=== PATIENT | female | born 1955 ===

== ENCOUNTER 2024-08-11 16:45 | Inpatient (IN) ==
[2024-08-11] MEDS ORDERED: IOPAMIDOL 100 ML BOTTLE IV ONE (16:46)
[2024-08-11 17:18] LABS: Basophils # (Auto) 0.02 K/mcL (0.00-0.30); Basophils % (Auto) 0.4 % (0.0-2.0); Eosinophils # (Auto) 0.01 K/mcL (0.00-0.70); Eosinophils % (Auto) 0.2 % (0.0-7.0); Hematocrit 41.7 % (34.1-44.9); Hemoglobin 11.8 g/dL (11.2-15.7); Lymphocytes # (Auto) 0.74 K/mcL (1.50-4.80); Mean Cell Volume 108.3 fL (80.0-100.0); Mean Corpuscular HGB Conc 28.3 g/dL (31.0-36.0); Mean Platelet Volume 10.6 fL (8.8-12.5); Monocytes # (Auto) 0.47 K/mcL (0.10-0.90); Monocytes % (Auto) 8.3 % (1.0-12.0); Neutrophils % (Auto) 77.9 % (38.0-78.0); Platelet Count 159 K/mcL (140-440); RBC 3.85 M/mcL (3.59-5.38); Red Cell Distribution Width 15.1 % (11.5-14.5); WBC 5.7 K/mcL (4.5-11.0)
[2024-08-11 17:37] LABS: Appearance,Urine Cloudy (Clear); Bacteria,Urine Rare /hpf (0); Bilirubin,Urine Moderate mg/dL (Negative); Color,Urine Yellow; Glucose,Urine (UA) Negative (Negative); Ketones,Urine Negative (Negative); Leukocyte Esterase,Urine Small /uL (Negative); Nitrate,Urine Negative (Negative); PH,Urine 5.5 (5.0-9.0); Protein,Urine 100 mg/dL (Negative); Specific Gravity,Urine >= 1.030 (1.000-1.035); Urine Blood Large ery/mcL (Negative); Urine RBC 50 /hpf (0-3); Urine Squamous Epithelial Cell 2 /hpf (0-4); Urine WBC > 182 /hpf (0-4); Urobilinogen,Urine Normal
[2024-08-11] MEDS: DILTIAZEM 25 MG/5 ML VIAL IV ONE ×2 (17:46→21:20)
[2024-08-11] MEDS: cefTRIAXone 1 GM VIAL IV ONE (17:46)
[2024-08-11 17:57] LABS: ALT/SGPT < 5 U/L (<40); AST/SGOT 22 U/L (<32); Albumin 3.6 gm/dL (3.2-5.2); Alkaline Phosphatase 90 U/L (39-117); Bilirubin,Total 0.4 mg/dL (0.1-1.0); Blood Urea Nitrogen 26 mg/dL (8-23); Calcium 9.7 mg/dL (8.6-10.4); Carbon Dioxide 41 mmol/L (22-30); Chloride 92 mmol/L (96-108); Globulin 3.7 gm/dL (2.2-3.7); Glomerular Filtration Rate 100; Glucose 102 mg/dL (70-105); Potassium 5.4 mmol/L (3.3-5.1); Sodium 141 mmol/L (133-145)
[2024-08-11 18:20] LABS: Free T4 (Free Thyroxine) 0.72 ng/dL (0.93-1.70)
[2024-08-11] MEDS: IPRATROPIUM/ALBUTEROL 3 ML AMPUL.NEB NEB ONE (19:13)
[2024-08-11] MEDS: OSELTAMIVIR PHOSPHATE 75 MG CAPSULE PO ONE (21:56)
[2024-08-11] MEDS ORDERED: ACETAMINOPHEN 160 MG/5 ML ORAL.SOL PO PRN (23:22)
[2024-08-11] MEDS ORDERED: DILTIAZEM 125 MG in DEXTROSE 5% IN WATER 100 ML IV PRN (23:22)
[2024-08-11] MEDS: IPRATROPIUM/ALBUTEROL 3 ML AMPUL.NEB NEB SCH (23:26)
[2024-08-12] MEDS: acetaZOLAMIDE SOD 500 MG VIAL IV ONE ×2 (00:31→08:55)
[2024-08-12] MEDS: cefTRIAXone 2 GM in DEXTROSE 5% IN WATER 50 ML IV SCH (00:34)
[2024-08-12] MEDS: ENOXAPARIN 60 MG/0.6 ML SYRINGE ONE (00:45)
[2024-08-12] MEDS: ENOXAPARIN 40 MG/0.4 ML SYRINGE SQ SCH (00:46)
[2024-08-12] MEDS: METOPROLOL TARTRATE 25 MG TABLET PO SCH (00:49)
[2024-08-12] MEDS: METOPROLOL TARTRATE 25 MG TABLET ONE (00:50)
[2024-08-12] MEDS: IPRATROPIUM/ALBUTEROL 3 ML AMPUL.NEB NEB ONE ×3 (00:55→06:35)
[2024-08-12] MEDS: AZITHROMYCIN 500 MG in DEXTROSE 5% IN WATER 250 ML IV SCH (01:04)
[2024-08-12] MEDS: BUDESONIDE 0.5 MG/2 ML AMPUL.NEB ONE (06:35)
[2024-08-12 07:05] LABS: ALT/SGPT < 5 U/L (<40); AST/SGOT 12 U/L (<32); Albumin 3.2 gm/dL (3.2-5.2); Albumin/Globulin Ratio 1.1 (1.0-2.3); Alkaline Phosphatase 78 U/L (39-117); Bilirubin,Direct < 0.2 mg/dL (0-0.3); Bilirubin,Total 0.3 mg/dL (0.1-1.0); Blood Urea Nitrogen 26 mg/dL (8-23); Calcium 9.3 mg/dL (8.6-10.4); Carbon Dioxide 42 mmol/L (22-30); Chloride 93 mmol/L (96-108); Glomerular Filtration Rate 94; Glucose 83 mg/dL (70-105); Lactate Dehydrogenase 130 U/L (135-225); Phosphorous 2.1 mg/dL (2.5-4.5); Potassium 4.5 mmol/L (3.3-5.1); Sodium 142 mmol/L (133-145); Triglycerides 101 mg/dL (<150); Uric Acid 4.5 mg/dL (2.5-8.0)
[2024-08-12] MEDS: PANTOPRAZOLE 40 MG TABLET PO SCH (08:00)
[2024-08-12] MEDS: IPRATROPIUM/ALBUTEROL 3 ML AMPUL.NEB NEB PRN (08:25)
[2024-08-12] MEDS: FUROSEMIDE 40 MG/4 ML VIAL IV ONE (08:55)
[2024-08-12] MEDS: CYANOCOBALAMIN 1,000 MCG/ML VIAL IM ONE (08:56)
[2024-08-12] MEDS ORDERED: OSELTAMIVIR PHOSPHATE 75 MG CAPSULE PO SCH (09:00)
[2024-08-12] MEDS: BUDESONIDE 0.5 MG/2 ML AMPUL.NEB NEB SCH (09:00)
[2024-08-12] MEDS: methylPREDNISolone SOD SUCC 125 MG/2 ML VIAL IV ONE (09:19)
[2024-08-12] MEDS: ENOXAPARIN 60 MG/0.6 ML SYRINGE SQ ONE (12:41)
[2024-08-12] MEDS: methylPREDNISolone SOD SUCC 125 MG/2 ML VIAL IV SCH ×2 (15:00→21:34)
[2024-08-12] MEDS: NEUTRA PHOS 1 PACKET PO SCH (15:00)
[2024-08-12 15:32] LABS: C-Reactive Protein 2.97 mg/dL (0.03-0.80)
[2024-08-12] MEDS ORDERED: AZITHROMYCIN 500 MG in 0.9 % SODIUM CHLORIDE 250 ML IV SCH (16:00)
[2024-08-12] MEDS: METOPROLOL TARTRATE 5 MG/5 ML VIAL IV PRN (16:07)
[2024-08-12] MEDS: AZITHROMYCIN 500 MG in 0.9 % SODIUM CHLORIDE 250 ML IV SCH (16:07)
[2024-08-12] MEDS: APIXABAN 5 MG TABLET PO SCH (20:24)
[2024-08-12] MEDS ORDERED: APIXABAN 5 MG TABLET PO SCH ×2 (21:00)
[2024-08-13 06:11] LABS: Basophils # (Auto) 0.02 K/mcL (0.00-0.30); Basophils % (Auto) 0.5 % (0.0-2.0); Eosinophils # (Auto) 0 K/mcL (0.00-0.70); Eosinophils % (Auto) 0 % (0.0-7.0); Hematocrit 33.3 % (34.1-44.9); Hemoglobin 9.9 g/dL (11.2-15.7); Lymphocytes % (Auto) 8.2 % (15.5-49.0); Mean Cell Volume 102.5 fL (80.0-100.0); Mean Corpuscular HGB Conc 29.7 g/dL (31.0-36.0); Mean Platelet Volume 10.3 fL (8.8-12.5); Monocytes # (Auto) 0.16 K/mcL (0.10-0.90); Monocytes % (Auto) 4.4 % (1.0-12.0); Neutrophils % (Auto) 86.6 % (38.0-78.0); Platelet Count 142 K/mcL (140-440); RBC 3.25 M/mcL (3.59-5.38); Red Cell Distribution Width 15.6 % (11.5-14.5); WBC 3.7 K/mcL (4.5-11.0)
[2024-08-13 06:32] LABS: C-Reactive Protein 2.28 mg/dL (0.03-0.80)
[2024-08-13 06:33] LABS: ALT/SGPT < 5 U/L (<40); AST/SGOT 14 U/L (<32); Albumin 3.1 gm/dL (3.2-5.2); Albumin/Globulin Ratio 1.1 (1.0-2.3); Alkaline Phosphatase 69 U/L (39-117); Bilirubin,Direct < 0.2 mg/dL (0-0.3); Bilirubin,Total 0.3 mg/dL (0.1-1.0); Blood Urea Nitrogen 24 mg/dL (8-23); Calcium 8.9 mg/dL (8.6-10.4); Carbon Dioxide 40 mmol/L (22-30); Chloride 93 mmol/L (96-108); Globulin 2.8 gm/dL (2.2-3.7); Glomerular Filtration Rate 89; Glucose 133 mg/dL (70-105); Lactate Dehydrogenase 146 U/L (135-225); Phosphorous 3.3 mg/dL (2.5-4.5); Potassium 3.7 mmol/L (3.3-5.1); Sodium 140 mmol/L (133-145); Triglycerides 99 mg/dL (<150); Uric Acid 4.8 mg/dL (2.5-8.0)
[2024-08-13] MEDS ORDERED: IOPAMIDOL 100 ML BOTTLE IV ONE (08:57)
[2024-08-13] MEDS: CYANOCOBALAMIN (VITAMIN B-12) 500 MCG TABLET PO SCH (10:23)
[2024-08-13] MEDS ORDERED: ALTEPLASE 2 MG VIAL IV PRN (12:19)
[2024-08-13] MEDS: METOPROLOL TARTRATE 25 MG TABLET PO ONE (12:45)
[2024-08-13] MEDS ORDERED: DILTIAZEM 125 MG in DEXTROSE 5% IN WATER 100 ML IV PRN (13:30)
[2024-08-13] MEDS ORDERED: LIDOCAINE 1% 10 ML VIAL SQ ONE (14:05)
[2024-08-13] MEDS ORDERED: SODIUM CHLORIDE IRRIG SOLUTION 500 ML BOTTLE IRR ONE (14:05)
[2024-08-13] MEDS: LACTATED RINGERS 1,000 ML IV SCH (16:48)
[2024-08-13] MEDS: 0.9 % SODIUM CHLORIDE 10 ML SYRINGE IV SCH (21:19)
[2024-08-13] MEDS: METOPROLOL TARTRATE 25 MG TABLET PO SCH (21:19)
[2024-08-13] MEDS: METOPROLOL TARTRATE 50 MG TABLET ONE (21:53)
[2024-08-14 06:07] LABS: Basophils # (Auto) 0 K/mcL (0.00-0.30); Basophils % (Auto) 0 % (0.0-2.0); Eosinophils # (Auto) 0 K/mcL (0.00-0.70); Eosinophils % (Auto) 0 % (0.0-7.0); Hematocrit 34.7 % (34.1-44.9); Hemoglobin 10.3 g/dL (11.2-15.7); Lymphocytes # (Auto) 0.55 K/mcL (1.50-4.80); Lymphocytes % (Auto) 13.6 % (15.5-49.0); Mean Cell Volume 102.7 fL (80.0-100.0); Mean Corpuscular HGB Conc 29.7 g/dL (31.0-36.0); Mean Platelet Volume 10.7 fL (8.8-12.5); Monocytes # (Auto) 0.38 K/mcL (0.10-0.90); Monocytes % (Auto) 9.4 % (1.0-12.0); Neutrophils % (Auto) 76.8 % (38.0-78.0); Platelet Count 144 K/mcL (140-440); RBC 3.38 M/mcL (3.59-5.38); Red Cell Distribution Width 15.6 % (11.5-14.5)
[2024-08-14 06:42] LABS: ALT/SGPT 9 U/L (<40); AST/SGOT 16 U/L (<32); Albumin 3.3 gm/dL (3.2-5.2); Albumin/Globulin Ratio 1.1 (1.0-2.3); Alkaline Phosphatase 69 U/L (39-117); Bilirubin,Direct < 0.2 mg/dL (0-0.3); Bilirubin,Total 0.3 mg/dL (0.1-1.0); Blood Urea Nitrogen 20 mg/dL (8-23); Calcium 9.1 mg/dL (8.6-10.4); Carbon Dioxide 40 mmol/L (22-30); Chloride 92 mmol/L (96-108); Globulin 2.9 gm/dL (2.2-3.7); Glomerular Filtration Rate 94; Glucose 105 mg/dL (70-105); Lactate Dehydrogenase 143 U/L (135-225); Phosphorous 3.5 mg/dL (2.5-4.5); Potassium 3.9 mmol/L (3.3-5.1); Sodium 139 mmol/L (133-145); Triglycerides 124 mg/dL (<150); Uric Acid 4.2 mg/dL (2.5-8.0)
[2024-08-14 07:08] LABS: Methylmalonic Acid 646 nmol/L (0-378)
[2024-08-14] MEDS: IPRATROPIUM/ALBUTEROL 3 ML AMPUL.NEB NEB SCH (07:38)
[2024-08-14] MEDS: methylPREDNISolone SOD SUCC 125 MG/2 ML VIAL IV SCH (09:43)
[2024-08-14] MEDS: 0.9 % SODIUM CHLORIDE 10 ML SYRINGE IV PRN (09:46)
[2024-08-14 15:07] LABS: Adenovirus Not Detected (Not Detected); Bordetella Pertussis Not Detected (Not Detected); Chlamydophila Pneumoniae Not Detected (Not Detected); Coronavirus 229E Not Detected (Not Detected); Coronavirus HKU1 Not Detected (Not Detected); Coronavirus NL63 Not Detected (Not Detected); Coronavirus OC43 Not Detected (Not Detected); Human Metapneumovirus Not Detected (Not Detected); Influenza A/H1 Not Detected (Not Detected); Influenza A/H1-2009 Not Detected (Not Detected); Influenza A/H3 Not Detected (Not Detected); Influenza B Not Detected (Not Detected); Mycoplasma Pneumoniae Not Detected (Not Detected); Parainfluenza 1 Not Detected (Not Detected); Parainfluenza 2 Not Detected (Not Detected); Parainfluenza 3 Not Detected (Not Detected); Parainfluenza 4 Not Detected (Not Detected); Respiratory Syncytial Virus Not Detected (Not Detected)
[2024-08-15 07:01] LABS: Basophils # (Auto) 0 K/mcL (0.00-0.30); Basophils % (Auto) 0 % (0.0-2.0); Eosinophils # (Auto) 0 K/mcL (0.00-0.70); Eosinophils % (Auto) 0 % (0.0-7.0); Hematocrit 32.8 % (34.1-44.9); Lymphocytes # (Auto) 0.59 K/mcL (1.50-4.80); Lymphocytes % (Auto) 15.7 % (15.5-49.0); Mean Cell Volume 101.5 fL (80.0-100.0); Mean Corpuscular HGB Conc 30.5 g/dL (31.0-36.0); Mean Platelet Volume 11.9 fL (8.8-12.5); Monocytes # (Auto) 0.43 K/mcL (0.10-0.90); Monocytes % (Auto) 11.4 % (1.0-12.0); Neutrophils % (Auto) 72.9 % (38.0-78.0); Platelet Count 174 K/mcL (140-440); RBC 3.23 M/mcL (3.59-5.38); Red Cell Distribution Width 15.6 % (11.5-14.5); WBC 3.8 K/mcL (4.5-11.0)
[2024-08-15 07:03] LABS: ALT/SGPT 14 U/L (<40); AST/SGOT 23 U/L (<32); Albumin 3.2 gm/dL (3.2-5.2); Albumin/Globulin Ratio 1.2 (1.0-2.3); Alkaline Phosphatase 68 U/L (39-117); Bilirubin,Direct < 0.2 mg/dL (0-0.3); Bilirubin,Total 0.4 mg/dL (0.1-1.0); Blood Urea Nitrogen 21 mg/dL (8-23); Carbon Dioxide 42 mmol/L (22-30); Chloride 93 mmol/L (96-108); Globulin 2.6 gm/dL (2.2-3.7); Glomerular Filtration Rate 94; Glucose 90 mg/dL (70-105); Lactate Dehydrogenase 149 U/L (135-225); Phosphorous 3.2 mg/dL (2.5-4.5); Potassium 3.7 mmol/L (3.3-5.1); Sodium 139 mmol/L (133-145); Triglycerides 107 mg/dL (<150); Uric Acid 4.4 mg/dL (2.5-8.0)
[2024-08-15] MEDS: POTASSIUM CHLORIDE 20 MEQ TABLET PO ONE (08:01)
[2024-08-15] MEDS: predniSONE 20 MG TABLET PO SCH (08:02)
[2024-08-15] MEDS: DICLOFENAC SODIUM 0.1% OU PRN (08:10)
[2024-08-16 06:23] LABS: Basophils # (Auto) 0 K/mcL (0.00-0.30); Basophils % (Auto) 0 % (0.0-2.0); Eosinophils # (Auto) 0 K/mcL (0.00-0.70); Eosinophils % (Auto) 0 % (0.0-7.0); Hematocrit 32.6 % (34.1-44.9); Hemoglobin 9.8 g/dL (11.2-15.7); Lymphocytes % (Auto) 22.6 % (15.5-49.0); Mean Cell Volume 101.6 fL (80.0-100.0); Mean Corpuscular HGB Conc 30.1 g/dL (31.0-36.0); Mean Platelet Volume 10.9 fL (8.8-12.5); Monocytes # (Auto) 0.51 K/mcL (0.10-0.90); Monocytes % (Auto) 14.4 % (1.0-12.0); Platelet Count 119 K/mcL (140-440); RBC 3.21 M/mcL (3.59-5.38); Red Cell Distribution Width 15.4 % (11.5-14.5); WBC 3.5 K/mcL (4.5-11.0)
[2024-08-16 06:44] LABS: ALT/SGPT 22 U/L (<40); AST/SGOT 26 U/L (<32); Albumin/Globulin Ratio 1.4 (1.0-2.3); Alkaline Phosphatase 66 U/L (39-117); Bilirubin,Direct < 0.2 mg/dL (0-0.3); Bilirubin,Total 0.3 mg/dL (0.1-1.0); Blood Urea Nitrogen 21 mg/dL (8-23); Calcium 8.6 mg/dL (8.6-10.4); Carbon Dioxide 42 mmol/L (22-30); Chloride 94 mmol/L (96-108); Globulin 2.2 gm/dL (2.2-3.7); Glomerular Filtration Rate 94; Glucose 83 mg/dL (70-105); Lactate Dehydrogenase 156 U/L (135-225); Potassium 4.1 mmol/L (3.3-5.1); Sodium 139 mmol/L (133-145); Triglycerides 88 mg/dL (<150); Uric Acid 4.1 mg/dL (2.5-8.0)
[2024-08-16 19:33] LABS: Basophils # (Auto) 0 K/mcL (0.00-0.30); Basophils % (Auto) 0 % (0.0-2.0); Eosinophils # (Auto) 0 K/mcL (0.00-0.70); Eosinophils % (Auto) 0 % (0.0-7.0); Hematocrit 38.2 % (34.1-44.9); Hemoglobin 11.3 g/dL (11.2-15.7); Lymphocytes % (Auto) 7.7 % (15.5-49.0); Mean Cell Volume 101.9 fL (80.0-100.0); Mean Corpuscular HGB Conc 29.6 g/dL (31.0-36.0); Mean Platelet Volume 10.9 fL (8.8-12.5); Monocytes # (Auto) 0.19 K/mcL (0.10-0.90); Monocytes % (Auto) 4.9 % (1.0-12.0); Neutrophils % (Auto) 87.4 % (38.0-78.0); Platelet Count 150 K/mcL (140-440); RBC 3.75 M/mcL (3.59-5.38); Red Cell Distribution Width 15.3 % (11.5-14.5); WBC 3.9 K/mcL (4.5-11.0)
[2024-08-17] MEDS: predniSONE 20 MG TABLET PO SCH (09:04)
[2024-08-17] MEDS: 0.9 % SODIUM CHLORIDE 10 ML SYRINGE IV SCH (15:37)
== END 2024-08-18 14:05 | DRG 190 ==
LOC: ED 16:45 → ICU 23:13 → MEDSUR 08-16 06:40
PROVIDERS: ADMIT Internal Medicine; ATTEND Student in an Organized Health Care Education/Training Program